=== PATIENT | female | born 1975 | race African-American/Black ===

== ENCOUNTER 2018-06-08 19:06 | Inpatient (IN) | payer MEDICAID, OTHER ==
[~2018-06-08] VITALS: Ht 162.6 cm; Wt 77.1 kg
[2018-06-08 21:04] LABS: CLARITY URINE CLEAR (CLEAR); COLOR URINE YELLOW (YELLOW); KETONES URINE NEGATIVE (NEGATIVE); LEUKOCYTE ESTERASE URINE NEGATIVE (NEGATIVE); NITRITE URINE NEGATIVE (NEGATIVE); OCCULT BLOOD URINE NEGATIVE (NEGATIVE); PH URINE 6.5 (4.5-8.0); PROTEIN URINE NEGATIVE (NEGATIVE); SPECIFIC GRAVITY URINE 1.023 (1.005-1.030); UROBILINOGEN URINE 0.2 E.U./dL (0.2-1.0)
[2018-06-08 22:50] LABS: BASOPHILS % 0.7 % (0.0-2.0); EOSINOPHILS % 2.2 % (0.0-5.0); HEMATOCRIT. 35.1 % (36.0-48.0); HEMOGLOBIN. 11.5 g/dL (12.0-16.0); LYMPHOCYTES % 20.9 % (20.0-50.0); MEAN CORPUSCULAR HEMOGLOBIN 28.3 pg (28.0-32.0); MEAN CORPUSCULAR VOLUME 86.6 fL (81.0-99.0); MEAN PLATELET VOLUME 9.6 fl (7.4-10.4); MONOCYTES % 8.5 % (2.0-8.0); NEUTROPHILS % 67.7 % (40.0-76.0); PLATELET 235 x1000/uL (130-400); RED BLOOD CELL COUNT 4.06 mill/uL (4.2-5.4); RED CELL DISTRIBUTION WIDTH 14.5 % (11.6-14.6)
[2018-06-08] MEDS ORDERED: SODIUM CHLORIDE 0.9% 1,000 ML IV ONE (22:51)
[2018-06-08] MEDS ORDERED: MORPHINE SULFATE 4 MG/ML CPJ (NOT FOR IM USE) IV STA (22:51)
[2018-06-08] MEDS ORDERED: ONDANSETRON HCL 4MG/2ML INJ IV STA (22:51)
[2018-06-08 22:57] LABS: CHLORIDE 107 mEq/L (98-107)
[2018-06-08] MEDS ORDERED: DIPHENHYDRAMINE 50MG/ML VIAL IV ONE (23:00)
[2018-06-08] MEDS ORDERED: DIATR MEGLU/DIATRIZOATE SOLN 30ML ONE (23:07)
[2018-06-09] MEDS ORDERED: DIATR MEGLU/DIATRIZOATE SOLN 30ML ONE (00:31)
[2018-06-09] MEDS ORDERED: SODIUM CHLORIDE 0.9% 1,000 ML IV SCH (02:16)
[2018-06-09] MEDS ORDERED: IOHEXOL-300 100 ML BOTTLE ONE (03:28)
[2018-06-09] MEDS ORDERED: SODIUM CHLORIDE 0.9% 1,000 ML IV ONE (04:05)
[2018-06-09] MEDS ORDERED: CEFTRIAXONE 1 G PREMIX 50 ML IV ONE (04:15)
[2018-06-09] MEDS ORDERED: KETOROLAC 30MG/ML VIAL IV ONE (04:30)
[2018-06-09 06:09] VITALS: BP 126/86
[2018-06-09] MEDS: PANTOPRAZOLE SODIUM 40 MG/VIAL IV SCH (09:07)
[2018-06-09] MEDS: DEXT 5%/0.45% NACL KCL 20MEQ/L 1,000 ML IV SCH ×2 (10:24→17:11)
[2018-06-09] MEDS: HYDROMORPHONE HCL/PF 2MG/ML CPJ IV PRN ×2 (10:25→18:49)
[2018-06-09] MEDS ORDERED: PIPERACILLIN/TAZ 3.375G PREMIX 50 ML IV SCH (13:00)
[2018-06-09] MEDS ORDERED: METRONIDAZOLE 500 MG PREMIX 100 ML IV SCH (15:00)
[2018-06-09] MEDS: LEVOFLOXACIN 500MG PREMIX 100 ML IV SCH (17:10)
[2018-06-09] MEDS: ONDANSETRON HCL 4MG/2ML INJ IV PRN (19:49)
[2018-06-09 20:00] VITALS: BP 130/72
[2018-06-10] VITALS: BP 102/62
[2018-06-10] MEDS: DEXT 5%/0.45% NACL KCL 20MEQ/L 1,000 ML IV SCH ×3 (00:23→16:00)
[2018-06-10 01:29] LABS: *AMPHETAMINES SCREEN URINE NEGATIVE (NEGATIVE); *BARBITURATES SCREEN URINE NEGATIVE (NEGATIVE); *BENZODIAZEPINES SCREEN URINE NEGATIVE (NEGATIVE); *COCAINE SCREEN URINE NEGATIVE (NEGATIVE)
[2018-06-10 01:31] LABS: CANNABINOID URINE SCREEN NEGATIVE (NEGATIVE); METHADONE URINE SCREEN NEGATIVE (NEGATIVE); PHENCYCLIDINE URINE SCREEN NEGATIVE (NEGATIVE)
[2018-06-10 01:49] LABS: OPIATES URINE SCREEN PRESUMTIVE POSITIVE (NEGATIVE)
[2018-06-10] MEDS: METRONIDAZOLE 500 MG PREMIX 100 ML IV SCH ×3 (02:58→18:13)
[2018-06-10 04:00] VITALS: BP 127/85
[2018-06-10] MEDS: ONDANSETRON HCL 4MG/2ML INJ IV PRN ×2 (05:55→20:39)
[2018-06-10] MEDS: HYDROMORPHONE HCL/PF 2MG/ML CPJ IV PRN ×2 (05:56→20:40)
[2018-06-10 06:38] LABS: INR 1.1; PROTHROMBIN TIME 10.8 sec (9.1-11.1)
[2018-06-10 06:45] LABS: HEMATOCRIT. 32.4 % (36.0-48.0); HEMOGLOBIN. 10.5 g/dL (12.0-16.0); MEAN CORPUSCULAR HEMOGLOBIN 28.2 pg (28.0-32.0); MEAN CORPUSCULAR VOLUME 86.6 fL (81.0-99.0); MEAN PLATELET VOLUME 10.3 fl (7.4-10.4); PLATELET 220 x1000/uL (130-400); RED BLOOD CELL COUNT 3.74 mill/uL (4.2-5.4); RED CELL DISTRIBUTION WIDTH 14.4 % (11.6-14.6)
[2018-06-10 08:00] VITALS: BP 120/73
[2018-06-10] MEDS: PANTOPRAZOLE SODIUM 40 MG/VIAL IV SCH (08:14)
[2018-06-10] MEDS ORDERED: LIDOCAINE HCL 1% 20ML VIAL (Pyxis) INJ ONE (09:29)
[2018-06-10] MEDS ORDERED: SODIUM BICARBONATE 4% (2.4MEQ) 5ML VIAL IV ONE (09:30)
[2018-06-10 12:00] VITALS: BP 120/80
[2018-06-10 12:49] LABS: PLATELET ESTIMATE NORMAL
[2018-06-10] MEDS: LEVOFLOXACIN 500MG PREMIX 100 ML IV SCH (14:48)
[2018-06-10 16:00] VITALS: BP 127/91
[2018-06-10] MEDS: KETOROLAC 30MG/ML VIAL IV PRN (16:29)
[2018-06-10 20:00] VITALS: BP 117/73
[2018-06-11] VITALS: BP 140/83
[2018-06-11] MEDS: DEXT 5%/0.45% NACL KCL 20MEQ/L 1,000 ML IV SCH ×4 (02:18→23:41)
[2018-06-11] MEDS: METRONIDAZOLE 500 MG PREMIX 100 ML IV SCH ×3 (02:18→17:11)
[2018-06-11] MEDS: ONDANSETRON HCL 4MG/2ML INJ IV PRN (02:18)
[2018-06-11 04:00] VITALS: BP 117/70
[2018-06-11 07:11] LABS: BASOPHILS % 0.3 % (0.0-2.0); EOSINOPHILS % 0.5 % (0.0-5.0); HEMATOCRIT. 33.8 % (36.0-48.0); LYMPHOCYTES % 7.9 % (20.0-50.0); MEAN CORPUSCULAR HEMOGLOBIN 28.2 pg (28.0-32.0); MEAN CORPUSCULAR VOLUME 86.5 fL (81.0-99.0); NEUTROPHILS % 81.3 % (40.0-76.0); PLATELET 216 x1000/uL (130-400); RED BLOOD CELL COUNT 3.91 mill/uL (4.2-5.4); RED CELL DISTRIBUTION WIDTH 14.3 % (11.6-14.6)
[2018-06-11 07:26] LABS: CHLORIDE 106 mEq/L (98-107)
[2018-06-11 08:00] VITALS: BP 115/69
[2018-06-11] MEDS: PANTOPRAZOLE SODIUM 40 MG/VIAL IV SCH (09:28)
[2018-06-11] MEDS ORDERED: ACETAMINOPHEN 325MG TABLET PO PRN (11:30)
[2018-06-11 12:00] VITALS: BP 131/80
[2018-06-11 16:00] VITALS: BP 130/77
[2018-06-11] MEDS: LEVOFLOXACIN 500MG PREMIX 100 ML IV SCH (17:11)
[2018-06-11 20:00] VITALS: BP 127/79
[2018-06-12] VITALS: BP 133/81
[2018-06-12] MEDS: METRONIDAZOLE 500 MG PREMIX 100 ML IV SCH ×2 (03:04→09:17)
[2018-06-12 04:00] VITALS: BP 129/86
[2018-06-12] MEDS: DEXT 5%/0.45% NACL KCL 20MEQ/L 1,000 ML IV SCH (07:22)
[2018-06-12 08:00] VITALS: BP 137/88
[2018-06-12] MEDS: PANTOPRAZOLE SODIUM 40 MG/VIAL IV SCH (09:10)
[2018-06-12] MEDS: KETOROLAC 30MG/ML VIAL IV PRN (11:41)
[2018-06-12 12:00] VITALS: BP 133/75
[2018-06-12] MEDS ORDERED: LEVOFLOXACIN 500MG TABLET PO SCH (15:00)
[2018-06-12 16:00] VITALS: BP 132/76
[2018-06-12 16:36] VITALS: BP 132/76
[2018-06-12] MEDS ORDERED: METRONIDAZOLE 500MG TABLET PO SCH (17:00)
== END 2018-06-12 17:30 | disposition home or self-care (01) | DRG 383 ==
LOC: ER 19:06 → 6EST 06-09 02:17 → EDBEDREQDT 06-09 02:31 → EDBEDREQTM 06-09 02:31 → EDBEDREQ 06-09 02:31 → ENRESERV 06-09 02:49
PROVIDERS: ADMIT Internal Medicine; ATTEND Internal Medicine
PROC: 0W9F3ZZ Drainage of Abdominal Wall, Percutaneous Approach (ICD-10-PCS; principal; 2018-06-10)
DX: L02.211 Cutaneous abscess of abdominal wall (principal); D25.9 Leiomyoma of uterus, unspecified; D27.9 Benign neoplasm of unspecified ovary; D64.9 Anemia, unspecified; K42.9 Umbilical hernia without obstruction or gangrene; Z88.0 Allergy status to penicillin; Z88.5 Allergy status to narcotic agent; Z90.49 Acquired absence of other specified parts of digestive tract
CPT/HCPCS: 20611; 36415; 74177; 76830; 76856; 80048; 80305; 83605; 84145; 84702; 96365; 96375; 99285; C9113; J0696; J1170; J1200; J1885; J1956; J2270; J2405; J3490; J7030; Q9963; Q9967

== ENCOUNTER 2018-10-15 07:30 | Emergency (ER) | payer MEDICAID, OTHER ==
[~2018-10-15] VITALS: Ht 162.6 cm; Wt 82.0 kg
[2018-10-15 07:41] VITALS: BP 140/81
== END 2018-10-15 10:03 | disposition home or self-care (01) ==
LOC: ER 07:30
DX: S90.32XA Contusion of left foot, initial encounter (principal); Z88.5 Allergy status to narcotic agent; Z88.0 Allergy status to penicillin; Z98.890 Other specified postprocedural states; W22.8XXA Striking against or struck by other objects, initial encounter; Y93.89 Activity, other specified; Y92.018 Other place in single-family (private) house as the place of occurrence of the external cause
CPT/HCPCS: 73630; 81025; 99283

== ENCOUNTER 2019-05-21 20:00 | Emergency (ER) | payer BC, MEDICAID, OTHER ==
[~2019-05-21] VITALS: Ht 162.6 cm; Wt 79.0 kg
[2019-05-21 20:15] VITALS: BP 149/95
== END 2019-05-21 21:23 | disposition left against medical advice (07) ==
LOC: ER 20:49
DX: R51 Headache (principal); H53.8 Other visual disturbances; A35 Other tetanus; Z53.21 Procedure and treatment not carried out due to patient leaving prior to being seen by health care provider
CPT/HCPCS: 82962

== ENCOUNTER 2019-06-27 18:54 | Emergency (ER) | payer BC ==
[~2019-06-27] VITALS: Ht 162.6 cm; Wt 81.0 kg
[2019-06-27 18:57] VITALS: BP 152/92
== END 2019-06-27 20:21 | disposition left against medical advice (07) ==
LOC: ER 18:54
DX: R42 Dizziness and giddiness (principal); R51 Headache; Z53.21 Procedure and treatment not carried out due to patient leaving prior to being seen by health care provider

== ENCOUNTER 2020-05-15 18:03 | Emergency (ER) | payer BC, MEDICAID ==
[~2020-05-15] VITALS: Ht 162.6 cm; Wt 75.0 kg
[2020-05-15] MEDS ORDERED: MORPHINE SULFATE 4 MG/ML CPJ (NOT FOR IM USE) IV STA (20:30)
[2020-05-15] MEDS ORDERED: SODIUM CHLORIDE 0.9% 1,000 ML IV ONE (20:30)
[2020-05-15] MEDS ORDERED: ONDANSETRON HCL 4MG/2ML INJ IV STA (20:30)
[2020-05-15 21:36] LABS: BASOPHILS % 0.7 % (0.0-2.0); HEMATOCRIT. 34.5 % (36.0-48.0); HEMOGLOBIN. 11.2 g/dL (12.0-16.0); LYMPHOCYTES % 38.9 % (20.0-50.0); MEAN CORPUSCULAR HEMOGLOBIN 26.8 pg (28.0-32.0); MEAN CORPUSCULAR VOLUME 82.5 fL (81.0-99.0); MEAN PLATELET VOLUME 9.2 fl (7.4-10.4); MONOCYTES % 10.1 % (2.0-8.0); NEUTROPHILS % 46.3 % (40.0-76.0); PLATELET 253 x1000/uL (130-400); RED BLOOD CELL COUNT 4.18 mill/uL (4.2-5.4); RED CELL DISTRIBUTION WIDTH 15.5 % (11.6-14.6)
[2020-05-15 21:43] LABS: CHLORIDE 108 mEq/L (98-107)
[2020-05-15 21:48] LABS: PROTHROMBIN TIME 10.4 sec (9.6-11.0)
[2020-05-15 21:49] LABS: ETHANOL BLOOD < 10 mg/dL
[2020-05-15 21:52] LABS: HCG SCREEN NEGATIVE
[2020-05-15 21:53] LABS: CLARITY URINE CLEAR (CLEAR); COLOR URINE YELLOW (YELLOW); KETONES URINE NEGATIVE (NEGATIVE); LEUKOCYTE ESTERASE URINE NEGATIVE (NEGATIVE); NITRITE URINE NEGATIVE (NEGATIVE); OCCULT BLOOD URINE NEGATIVE (NEGATIVE); PROTEIN URINE TRACE (NEGATIVE); SPECIFIC GRAVITY URINE 1.027 (1.005-1.030); UROBILINOGEN URINE 0.2 E.U./dL (0.2-1.0)
[2020-05-15 21:57] LABS: *AMPHETAMINES SCREEN URINE NEGATIVE (NEGATIVE); *BARBITURATES SCREEN URINE NEGATIVE (NEGATIVE); *BENZODIAZEPINES SCREEN URINE NEGATIVE (NEGATIVE); *COCAINE SCREEN URINE NEGATIVE (NEGATIVE)
[2020-05-15 21:58] LABS: CANNABINOID URINE SCREEN NEGATIVE (NEGATIVE); METHADONE URINE SCREEN NEGATIVE (NEGATIVE); OPIATES URINE SCREEN NEGATIVE (NEGATIVE); PHENCYCLIDINE URINE SCREEN NEGATIVE (NEGATIVE)
[2020-05-15] MEDS ORDERED: AZITHROMYCIN 500 MG TABLET PO ONE (22:45)
[2020-05-15] MEDS ORDERED: ONDANSETRON HCL 4MG/2ML INJ IV ONE (22:45)
[2020-05-15] MEDS ORDERED: CEFTRIAXONE 1 G PREMIX 50 ML IV ONE (22:45)
[2020-05-15 23:44] VITALS: BP 109/68
== END 2020-05-16 00:12 | disposition home or self-care (01) ==
LOC: ER 18:03
DX: T18.9XXA Foreign body of alimentary tract, part unspecified, initial encounter (principal); R11.2 Nausea with vomiting, unspecified; Z85.9 Personal history of malignant neoplasm, unspecified; Z90.49 Acquired absence of other specified parts of digestive tract; Z98.890 Other specified postprocedural states; Z88.0 Allergy status to penicillin; Z88.2 Allergy status to sulfonamides; X58.XXXA Exposure to other specified factors, initial encounter; Y93.89 Activity, other specified; Y92.511 Restaurant or cafe as the place of occurrence of the external cause
CPT/HCPCS: 36415; 80053; 80305; 80320; 81003; 83605; 83690; 84703; 85025; 85610; 93005; 96361; 96374; 96375; 96376; 99284; J2270; J2405; J7030; G0480

== ENCOUNTER 2020-09-27 21:08 | Emergency (ER) | payer BC ==
[~2020-09-27] VITALS: Ht 162.6 cm; Wt 81.0 kg
[2020-09-27 21:25] VITALS: BP 170/80
== END 2020-09-27 22:03 | disposition left against medical advice (07) ==
LOC: ER 21:08
DX: Z53.21 Procedure and treatment not carried out due to patient leaving prior to being seen by health care provider (principal)

== ENCOUNTER 2021-04-24 08:53 | Emergency (ER) | payer BC ==
[~2021-04-24] VITALS: Ht 165.1 cm; Wt 68.0 kg
[2021-04-24] MEDS ORDERED: IBUPROFEN 400MG TABLET PO ONE (09:45)
[2021-04-24] MEDS ORDERED: ONDANSETRON 4MG ODT PO ONE (10:00)
[2021-04-24] MEDS ORDERED: IBUP-2028 MT (10:53)
[2021-04-24] MEDS ORDERED: ONDA4TAB11 PO (10:55)
[2021-04-24 11:20] VITALS: BP 121/75
== END 2021-04-24 11:23 | disposition home or self-care (01) ==
LOC: ER 09:00
DX: U07.1 COVID-19 (principal); B34.9 Viral infection, unspecified; R51.9 Headache, unspecified; J45.909 Unspecified asthma, uncomplicated; R00.0 Tachycardia, unspecified; Z90.49 Acquired absence of other specified parts of digestive tract; Z88.5 Allergy status to narcotic agent; Z88.0 Allergy status to penicillin
CPT/HCPCS: 71045; 93005; 99285; C9803; Q0162; U0003; U0005

== ENCOUNTER 2021-05-29 22:01 | Emergency (ER) | payer MEDICAID ==
[~2021-05-29] VITALS: Ht 162.6 cm; Wt 80.0 kg
[~2021-05-29 22:01] MED LIST: IBUP-2028 MT; ONDA4TAB11 PO
[2021-05-29] MEDS ORDERED: DIPHENHYDRAMINE 50MG CAPSULE PO ONE (23:15)
[2021-05-29] MEDS ORDERED: FAMOTIDINE 20MG TABLET PO ONE (23:15)
[2021-05-29] MEDS ORDERED: PREDNISONE 20MG TABLET PO ONE (23:15)
[2021-05-29] MEDS: ALBUTEROL (0.083%) 2.5MG/3ML NEB HHN SCH (23:41)
[2021-05-30] MEDS: ALBUTEROL (0.083%) 2.5MG/3ML NEB HHN SCH ×2 (00:11→00:41)
[2021-05-30 00:14] VITALS: BP 121/78
[2021-05-30] MEDS ORDERED: P20 MT (00:41)
[2021-05-30] MEDS ORDERED: B25 PO (00:41)
== END 2021-05-30 00:54 | disposition home or self-care (01) ==
LOC: ER 22:01
DX: T78.40XA Allergy, unspecified, initial encounter (principal); J45.909 Unspecified asthma, uncomplicated; R06.02 Shortness of breath; Z88.0 Allergy status to penicillin; Z88.6 Allergy status to analgesic agent; Z90.49 Acquired absence of other specified parts of digestive tract; Z98.890 Other specified postprocedural states; X58.XXXA Exposure to other specified factors, initial encounter
CPT/HCPCS: 81025; 94640; 99285; J7512; Z7610; Q0163

== ENCOUNTER 2023-01-19 09:22 | Emergency (ER) | payer BC, MEDICAID ==
[~2023-01-19] VITALS: Ht 162.6 cm; Wt 82.0 kg
[~2023-01-19 09:22] MED LIST changes: +DIPH-1207 PO; +FERR325T6 PO
[2023-01-19 09:36] VITALS: O2SAT 100
[2023-01-19 10:15] VITALS: TEMP 97.5
[2023-01-19] MEDS ORDERED: ACETAMINOPHEN 325MG TABLET PO NR (10:15)
[2023-01-19] MEDS ORDERED: KETOROLAC 30MG/ML VIAL IM NR (10:15)
[2023-01-19 11:19] LABS: HEMATOCRIT. 29.2 % (36.0-48.0); HEMOGLOBIN. 9.1 g/dL (12.0-16.0); MEAN CORPUSCULAR VOLUME 73.9 fL (81.0-99.0); PLATELET 272 x1000/uL (130-400); RED BLOOD CELL COUNT 3.95 mill/uL (4.2-5.4); RED CELL DISTRIBUTION WIDTH 16.8 % (11.6-14.6)
[2023-01-19 12:17] LABS: CHLORIDE 110 mEq/L (98-107)
[2023-01-19 13:33] LABS: PLATELET ESTIMATE NORMAL
[2023-01-19] MEDS ORDERED: IOHEXOL-350 100 ML BOTTLE ONE (14:52)
[2023-01-19 17:20] VITALS: BP 123/81; PULSE 80; RESP 16
== END 2023-01-19 17:22 | disposition home or self-care (01) ==
LOC: ER 09:22
DX: R07.89 Other chest pain (principal); J45.909 Unspecified asthma, uncomplicated; Z88.0 Allergy status to penicillin; Z90.49 Acquired absence of other specified parts of digestive tract; Z98.890 Other specified postprocedural states
CPT/HCPCS: 80053; 81025; 85025; 85379; 84484; 36415; 71045; 71275; 93005; 96372; 99285; Q9967; J1885; Z7610 ×4

== ENCOUNTER 2024-03-12 19:50 | Emergency (ER) | payer BC, MEDICAID ==
[~2024-03-12] VITALS: Ht 162.6 cm; Wt 83.0 kg
[~2024-03-12 19:50] MED LIST changes: +ONDA-239 PO; -ONDA4TAB11 PO
[2024-03-12 20:06] VITALS: TEMP 37.05852; O2SAT 98
[2024-03-12 20:07] VITALS: BP 150/79; PULSE 89; RESP 16; TEMP 98.7; O2SAT 100
[2024-03-12] MEDS ORDERED: CYCL5TAB MT (21:33)
[2024-03-12] MEDS ORDERED: LIDO700A15 TP (21:33)
[2024-03-12] MEDS: KETOROLAC 30MG/ML VIAL IM ONE (21:52)
[2024-03-12] MEDS: LIDOCAINE 5% PATCH TOP SCH (21:53)
== END 2024-03-13 02:26 | disposition home or self-care (01) ==
LOC: ER 19:51
DX: M54.50 Low back pain, unspecified (principal); Z98.890 Other specified postprocedural states; Z90.49 Acquired absence of other specified parts of digestive tract; Z88.0 Allergy status to penicillin; Z88.5 Allergy status to narcotic agent
CPT/HCPCS: 81025; 96372; 99283; J1885; Z7610

== ENCOUNTER 2024-06-09 12:21 | Emergency (ER) | payer BC, MEDICAID ==
[~2024-06-09] VITALS: Ht 162.6 cm; Wt 82.0 kg
[~2024-06-09 12:21] MED LIST changes: +CYCL5TAB3 MT; +LIDO700A15 TP
[2024-06-09 12:31] VITALS: O2SAT 100
[2024-06-09] MEDS: TETANUS, DIPHTHERIA, PERTUSSIS VAC/PF 0.5ML (>10YR OLD) IM ONE (13:06)
[2024-06-09 13:08] VITALS: BP 138/84; PULSE 71; RESP 16; TEMP 37.11408; O2SAT 100
== END 2024-06-09 13:26 | disposition home or self-care (01) ==
LOC: ER 12:21
DX: S51.011A Laceration without foreign body of right elbow, initial encounter (principal); Z88.0 Allergy status to penicillin; Z88.5 Allergy status to narcotic agent; W54.0XXA Bitten by dog, initial encounter; Y93.89 Activity, other specified; Y92.89 Other specified places as the place of occurrence of the external cause; Y99.8 Other external cause status
CPT/HCPCS: 90471; 90715; 99283

== ENCOUNTER 2024-09-28 00:56 | Emergency (ER) | payer BC, MEDICAID ==
[~2024-09-28] VITALS: Ht 162.6 cm; Wt 81.0 kg
[2024-09-28 01:04] VITALS: O2SAT 100
[2024-09-28] MEDS ORDERED: ACET-2708 MT (01:34)
[2024-09-28] MEDS ORDERED: CLIN-194 MT (01:45)
[2024-09-28] MEDS: ACETAMINOPHEN 325MG TABLET PO ONE (01:48)
[2024-09-28 02:05] VITALS: BP 130/87; PULSE 84; RESP 18; TEMP 36.8; O2SAT 100
== END 2024-09-28 02:05 | disposition home or self-care (01) ==
LOC: ER 00:56
DX: M79.641 Pain in right hand (principal); Z90.710 Acquired absence of both cervix and uterus; Z79.899 Other long term (current) drug therapy; Z88.5 Allergy status to narcotic agent; Z88.0 Allergy status to penicillin
CPT/HCPCS: 29125; 73130; 99283

== ENCOUNTER 2025-01-24 03:44 | Emergency (ER) | payer BC, MEDICAID ==
[~2025-01-24] VITALS: Ht 162.6 cm; Wt 83.0 kg
[~2025-01-24 03:44] MED LIST changes: +ACET-2708 MT; +CLIN-194 MT; +LIDO-53 TP; -LIDO700A15 TP
[2025-01-24 03:52] VITALS: O2SAT 98
[2025-01-24 05:20] LABS: BASOPHILS % 1.1 % (0.0-2.0); EOSINOPHILS % 3.9 % (0.0-5.0); HEMATOCRIT. 42.5 % (36.0-48.0); HEMOGLOBIN. 14.2 g/dL (12.0-16.0); LYMPHOCYTES % 38.7 % (20.0-50.0); MEAN PLATELET VOLUME 9.3 fl (7.4-10.4); MONOCYTES % 8.0 % (2.0-8.0); NEUTROPHILS % 48.3 % (40.0-76.0); PLATELET 244 x1000/uL (130-400); RED BLOOD CELL COUNT 4.72 mill/uL (4.2-5.4); RED CELL DISTRIBUTION WIDTH 14.9 % (11.6-14.6)
[2025-01-24 05:33] LABS: CREATININE 0.9 mg/dL (0.6-1.0)
[2025-01-24 05:34] LABS: UREA NITROGEN BLOOD 12 mg/dL (9-23)
[2025-01-24 05:34] LABS: CLARITY URINE CLEAR (CLEAR); COLOR URINE YELLOW (YELLOW); GLUCOSE URINE NEGATIVE (NEGATIVE); KETONES URINE TRACE (NEGATIVE); OCCULT BLOOD URINE 1+ (NEGATIVE); PH URINE 5.0 (4.5-8.0); PROTEIN URINE NEGATIVE (NEGATIVE); SPECIFIC GRAVITY URINE 1.023 (1.005-1.030)
[2025-01-24 05:35] LABS: LEUKOCYTE ESTERASE URINE 2+ (NEGATIVE); NITRITE URINE NEGATIVE (NEGATIVE); UROBILINOGEN URINE 0.2 E.U./dL (0.2-1.0)
[2025-01-24 05:36] LABS: MUCUS URINE 2+ /lpf (< = 2+); SQUAMOUS EPITHELIAL CELL URINE 2+ /lpf (RARE/1+)
[2025-01-24 05:39] LABS: BACTERIA URINE TRACE; TRICHOMONAS URINE FEW
[2025-01-24] MEDS ORDERED: TINI500T18 MT (06:31)
[2025-01-24] MEDS ORDERED: NITR100C MT (06:31)
[2025-01-24] MEDS ORDERED: FLUC150T46 MT (06:31)
[2025-01-24 06:53] VITALS: BP 139/92; PULSE 78; RESP 12; TEMP 36.6; O2SAT 100
== END 2025-01-24 06:54 | disposition home or self-care (01) ==
LOC: ER 03:44
DX: N39.0 Urinary tract infection, site not specified (principal); A59.9 Trichomoniasis, unspecified; B37.9 Candidiasis, unspecified; I10 Essential (primary) hypertension; Z88.0 Allergy status to penicillin; Z88.5 Allergy status to narcotic agent; Z90.710 Acquired absence of both cervix and uterus; Z79.899 Other long term (current) drug therapy
CPT/HCPCS: 80048; 81003; 85025; 86850; 86900; 86901; 87086; 36415; 99284; Z7610